=== PATIENT | female | born 1955 | race Caucasian/White ===

== ENCOUNTER 2017-06-13 10:49 | Emergency (ER) | payer OTHER ==
[2017-06-13] MEDS ORDERED: NORMAL SALINE 1,000 ML IV ONE (11:10)
[2017-06-13] MEDS ORDERED: diphenhydrAMINE HCL 50 MG/ML VIAL IV ONE (11:10)
[2017-06-13] MEDS ORDERED: METOCLOPRAMIDE HCL 5 MG/ML VIAL IV ONE (11:10)
--- NOTE | 2017-06-13 11:13 | ERNOTE ---
Medical Problem HPI - General Chief Complaint: Nausea/Vomiting Time Seen by Provider: 06/13/17 11:02 Source: patient Exam Limitations: no limitations - Immun/Allergies/Home Medications Immunizations: IMMUNIZATION HX Immunizations Up to Date Yes History of Influenza Vaccine Yes Hx Pneumococcal Vaccination Yes Allergies/Adverse Reactions: Allergies oxycodone HCl [From Percocet] Allergy (Verified 06/13/17 10:55) Nausea Home Medications: HOME MEDICATIONS Cephalexin Monohydrate [Keflex] 500 mg PO QID #40 cap 07/29/14 [Last Taken Unknown] Glimepiride [Amaryl] 2 mg PO DAILY 07/29/14 [Last Taken Unknown] Levothyroxine Sodium [Tirosint] 125 mcg PO DAILY 07/29/14 [Last Taken Unknown] Lisinopril [Zestril] 10 mg PO DAILY 07/29/14 [Last Taken Unknown] metFORMIN HCL [Glumetza] 500 mg PO BID 07/29/14 [Last Taken Unknown] Ondansetron [Zofran Odt] 4 mg PO Q6H PRN #12 tab 06/13/17 [Last Taken Unknown] - History of Present History Narrative: Patient complains of 3-4 days of a sore throat, cough which eventually evolved into nausea and vomiting for the past several days that she has not been able to keep anything down. She rates the discomfort as at least moderate in severity. Timing: intermittent Severity: moderate Review of Systems - Review of Systems Constitutional: Present: See HPI EYE: Present: no symptoms reported ENT: Present: sore throat Respiratory: Present: no symptoms reported Cardiology: Present: no symptoms reported Gastrointestinal/Abdominal: Present: nausea, vomiting, abdominal pain Genitourinary: Present: no symptoms reported Musculoskeletal: Present: no symptoms reported Skin: Present: no symptoms reported Neurological: Present: no symptoms reported Endocrine: Present: no symptoms reported Hematologic/Lymphatic: Present: no symptoms reported Psych: Present: no symptoms reported - Patient's Past Medical History Patient History - Medical: Diabetes Type 2 Patient History - Cardiac/Respiratory: Hypertension, Hyperlipidemia Patient History - Cancer: No Hx of Cancer Patient History - Surgical Procedures: Other Patient History - Other: None LMP (females 10-50): Menopausal - Social History Living Situations: home Abuse History: No History of abuse Psych History: No pertinent hx Smoking Status: Former smoker Have you smoked in the past 12 months: No Do you dip or chew tobacco: No Alcohol Use: none Drug Use: none - Immunizations Immunizations Up to Date: Yes Hx Pneumococcal Vaccination: Yes History of Influenza Vaccine: Yes Physical Exam - Physical Exam General Appearance: Present: wd/wn, alert, moderate distress Head Exam: Present: normal inspection, no evidence of injury Eye Exam: Normal inspection: bilateral, PERRL: bilateral Ears, Nose, Throat: Present: normal pharynx, dry mucous membranes Neck: Present: normal inspection, nontender Respiratory: Present: no respiratory distress, normal breath sounds, no accessory muscle use, chest nontender, lungs clear Cardiovascular/Chest: Present: regular rate, rhythm, no murmur, normal peripheral pulses Gastrointestinal/Abdominal: Present: nondistended, soft, no organomegaly, tenderness - generalized, abnormal bowel sounds - more hypoactive Rectal Exam: Present: deferred Back Exam: Present: normal inspection, normal range of motion Extremity Exam: Present: normal inspection, non-tender, no edema, normal range of motion Neurological Exam: Present: alert, oriented, normal mood/affect Skin Exam: Present: normal color, warm/dry Lymphatic Exam: Present: no adenopathy ED Progress - Results and Orders Patient's Lab Results:: I have reviewed the patient's lab results. - Vital Signs Patient's Vital Signs:: I have reviewed the patient's vital signs. Vital Signs: Vital Signs 06/13/17 06/13/17 10:56 11:07 Temperature 37.4 C Pulse Rate 102 H 102 H Respiratory 16 16 Rate Blood Pressure 142/82 142/82 O2 Sat by Pulse 98 98 Oximetry - X-Ray X-Ray #1 X-Ray: abdomen Interpretation: Reviewed by me - Progress/Reassessment Chief Complaint: Nausea/Vomiting Progress:: Improved Plan - Plan Plan: Patient feels much better after a liter fluid and she is ready to go home. She' ll be given a prescription for Zofran and if she is still having some body aches we will give her today and tomorrow off from work. This is day 4 of the influenza and she is outside the window for Tamiflu, however she was told that she is may very well turned into diarrhea as well. She was told that she can take 1 capful of Pepto-Bismol with every diarrheal stool. Departure Clinical Impression: Influenza A - Departure Disposition: Home self-care Condition: Good Instructions: Influenza, Adult, [id number], Viral Gastroenteritis, Adult, [id number] Referrals: Mayda Mooney MD [Primary Care Provider] - Prescriptions: Ondansetron [Zofran Odt] 4 mg PO Q6H PRN #12 tab PRN Reason: Nausea And Vomiting
[2017-06-13 11:31] LABS: Hematocrit 41.4 % (37.0-47.0); Hemoglobin 13.5 gm/dL (12.5-16.0); Mean Cell Volume 85.5 fl (78-100); Mean Corpuscular Hemoglobin 27.9 pg (27-31); Mean Corpuscular Hgb Conc 32.6 g/dl (32-36); Mean Platelet Volume 10.8 fl (6.0-9.5); Neutrophil # 9.7 K/mm3 (1.3-6.0); Neutrophil % 84.8 % (42-75.0); Platelet Count 268 K/mm3 (150-450); Red Blood Count 4.84 M/mm3 (4.2-5.4); Red Cell Distribution Width 13.2 % (11.5-14.0); White Blood Count 11.5 K/mm3 (4.0-10.5)
[2017-06-13] MEDS ORDERED: METOCLOPRAMIDE HCL 5 MG/ML VIAL ONE (11:34)
[2017-06-13] MEDS ORDERED: diphenhydrAMINE HCL 50 MG/ML VIAL ONE (11:34)
[2017-06-13 11:43] LABS: ALT 28 U/L (19-67); AST 19 U/L (0-48); Albumin * 3.3 gm/dl (3.4-5.0); Alkaline Phosphatase * 87 U/L (50-170); Anion Gap 8.7 mmol/L (6.8-13.8); Bilirubin, Total 0.6 mg/dL (0.0-1.1); Blood Urea Nitrogen 7 mg/dL (3-23); Ca. Corrected For Albumin 9.2 mg/dL (8.4-10.2); Chloride 98 mmol/L (97-106); Glucose * 218 mg/dL (70-110); Magnesium 1.1 mg/dL (1.2-2.8); Potassium 3.7 mmol/L (3.4-4.6); Sodium 135 mmol/L (132-142); Total Protein 7.8 gm/dL (6.2-8.2)
[2017-06-14 08:34] VITALS: BP 151/77
== END 2017-06-13 13:17 | disposition home or self-care (01) ==
LOC: ER 10:49
DX: Z87.891 Personal history of nicotine dependence (principal); J10.1 Influenza due to other identified influenza virus with other respiratory manifestations